=== PATIENT | male | born 1975 | race African-American/Black ===

== ENCOUNTER → 2023-01-06 11:25 | Outpatient (CLI) | payer BC, SELFPAY ==
--- NOTE | ~2023-01-06 | MR_ITS ---
MRI of the right elbow CLINICAL HISTORY: Pain TECHNIQUE: Proton-density and proton-density fat-sat images were performed in the axial, coronal, and sagittal planes. FINDINGS: Ulnar collateral ligament is intact. Radial collateral ligament and the lateral ulnar colla teral ligament are intact. There is mild tendinosis at the common extensor tendon origin at the later al epicondyle region. Medial flexor tendon and medial epicondyle are unremarkable. No osseous or articular abnormality evident at the elbow. No fracture or dislocation seen. Bone marro w signals are unremarkable. No significant joint effusion. There is complete rupture of the distal biceps tendon, with the tendon retracted approximately 7 cm f rom the radial insertion, with the distal tendon demonstrating hyperintense wavy morphology. There is soft tissue edema about the retracted tendon and the lamina suspected course. Brachialis tendon is i ntact. Triceps tendon is intact. IMPRESSION: Complete rupture of the distal biceps tendon with retraction of approximately 7 cm. Please see detail s above. Reviewed, dictated and finalized at location . IMPRESSION: Complete rupture of the distal biceps tendon with retraction of approximately 7 cm. Please see details above.
== END ==
PROVIDERS: PCP Family Medicine
DX: S46.211A Strain of muscle, fascia and tendon of other parts of biceps, right arm, initial encounter (principal); T14.90XA Injury, unspecified, initial encounter
CPT/HCPCS: 73221